=== PATIENT | female | born 1995 | race Caucasian/White ===

== ENCOUNTER 2017-08-28 11:52 | Emergency (ER) | payer OTHER ==
[2017-08-28] MEDS ORDERED: PROPARACAINE 0.5% OPHTH DROPS 15 ML EACHEYE STA (13:53)
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
[2017-08-28 14:29] VITALS: BP 108/70
== END 2017-08-28 14:28 | disposition home or self-care (01) ==
LOC: ED 11:52
DX: S05.01XA Injury of conjunctiva and corneal abrasion without foreign body, right eye, initial encounter (principal); W22.8XXA Striking against or struck by other objects, initial encounter
CPT/HCPCS: 99283; J3490

== ENCOUNTER 2018-09-10 19:47 | Emergency (ER) | payer OTHER ==
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
[2018-09-10 22:55] VITALS: BP 136/86
== END 2018-09-10 22:55 | disposition home or self-care (01) ==
LOC: ED 19:47
DX: Z04.1 Encounter for examination and observation following transport accident (principal); H61.23 Impacted cerumen, bilateral; R03.0 Elevated blood-pressure reading, without diagnosis of hypertension
CPT/HCPCS: 69209; 99283

== ENCOUNTER 2018-09-28 17:32 | Emergency (ER) | payer OTHER ==
--- NOTE | 2018-09-28 17:45 | ED Physician Documentation ---
PD HPI FEMALE - Stated complaint Stated Complaint: FEMALE - Chief complaint Chief Complaint: UTI - History obtained from History obtained from: Patient - History of Present Illness Timing - onset: Today (Urinary frequency and burning starting today without flank pain fevers or chills. 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 : None HEENT: None Psych: None Musculoskeletal: None Derm: None - Past Surgical History Past Surgical History: No - Present Medications Home Medications: Ambulatory Orders Medication Instructions Recorded Confirmed Nitrofurantoin Monohyd/M-Cryst 100 mg PO BID #10 capsule 09/28/18 [Macrobid 100 mg Capsule] Phenazopyridine HCl [Pyridium] 200 mg PO TID PRN #6 tablet 09/28/18 - Allergies Allergies/Adverse Reactions: Allergies Allergy/AdvReac Type Severity Reaction Status Date / Time No Known Drug Allergies Allergy Verified 09/28/18 17:42 - Social History Does the pt smoke?: No Smoking Status: Never smoker Does the pt drink ETOH?: No Does the pt have substance abuse?: Yes - Immunizations Immunizations are current?: Yes - POLST Patient has POLST: No PD ED PE NORMAL - Vitals Vital signs reviewed: Yes - General General: Alert and oriented X 3, No acute distress - Abdomen Abdomen: Soft, Non tender - Back Back: No CVA TTP, No spinal TTP - Neuro Neuro: Alert and oriented X 3, Normal speech Results - Vitals Vitals: Vital Signs - 24 hr 09/28/18 17:40 Temperature 36.4 C L Heart Rate 92 Respiratory 16 Rate Blood Pressure 144/90 H O2 Saturation 100 Oxygen O2 Source Room air - Labs Labs: Laboratory Tests 09/28/18 18:05 Urine Color YELLOW Urine Clarity CLEAR Urine pH 5.5 Ur Specific [place] 1.010 Urine Protein NEGATIVE Urine Glucose (UA) NEGATIVE Urine Ketones NEGATIVE Urine Occult Blood SMALL H Urine Nitrite NEGATIVE Urine Bilirubin NEGATIVE Urine Urobilinogen 0.2 (NORMAL) Ur Leukocyte Esterase SMALL H Urine RBC 0-5 Urine WBC >25 H Ur Squamous Epith Cells FEW Squamous Urine Bacteria None Seen Ur Microscopic Review INDICATED Urine Culture Comments INDICATED Urine HCG, Qual NEGATIVE Departure - Departure Disposition: 01 Home, Self Care Clinical Impression: Cystitis Condition: Good Record reviewed to determine appropriate education?: Yes Instructions: ED UTI Cystitis Female Prescriptions: Nitrofurantoin Monohyd/M-Cryst [Macrobid 100 mg Capsule] 100 mg PO BID #10 capsule Phenazopyridine HCl [Pyridium] 200 mg PO TID PRN #6 tablet PRN Reason: dysuria Comments: We will culture your urine, the results should be done in 48-72 hours. If an antibiotic change is necessary we will call you. Return if worse in the mean time, especially if you develop increasing flank pain, fevers, or cannot keep down the medication. Your blood pressure was elevated today on check into the emergency department. This does not mean that you have hypertension, it is a common phenomenon to come to the emergency department and have elevated blood pressure. I recommend that you see your primary care physician within the week to have it rechecked when you are feeling better.
[2018-09-28 18:09] LABS: BILIRUBIN,URINE NEGATIVE (NEGATIVE); GLUCOSE, URINE (UA) NEGATIVE (NEGATIVE); KETONES,URINE (UA) NEGATIVE (NEGATIVE); LEUKOCYTE ESTERASE, URINE SMALL (NEGATIVE); NITRITE,URINE NEGATIVE (NEGATIVE); OCCULT BLOOD,URINE SMALL (NEGATIVE); PH,URINE 5.5 PH (5.0-7.5); PROTEIN,URINE NEGATIVE (NEGATIVE); UROBILINOGEN,URINE 0.2 (NORMAL) E.U./dL (NORMAL)
[2018-09-28 18:14] LABS: CLARITY,URINE CLEAR (CLEAR); HCG UR QUAL NEGATIVE
[2018-09-28 18:25] LABS: BACTERIA,URINE None Seen /HPF (None Seen); RBC,URINE 0-5 /HPF (0-5); SQUAMOUS EPITHELIAL CELL,UR FEW Squamous (<= Few)
[2018-09-28] MEDS ORDERED: PHENAZOPYRIDINE 100 MG TABLET PO STA (18:32)
[2018-09-28] MEDS ORDERED: NITROFURANTOIN MACRO 100 MG CAPSULE PO STA (18:32)
[2018-09-28 18:47] VITALS: BP 128/91
== END 2018-09-28 18:51 | disposition home or self-care (01) ==
LOC: ED 17:32
DX: N30.90 Cystitis, unspecified without hematuria (principal); R03.0 Elevated blood-pressure reading, without diagnosis of hypertension
CPT/HCPCS: 81001; 81025; 87086; 99283; A9270; 81003

== ENCOUNTER 2022-10-18 19:19 | Emergency (ER) | payer OTHER ==
[2022-10-18 19:57] LABS: BILIRUBIN,URINE NEGATIVE (NEGATIVE); GLUCOSE, URINE (UA) NEGATIVE (NEGATIVE); KETONES,URINE (UA) NEGATIVE (NEGATIVE); LEUKOCYTE ESTERASE, URINE LARGE (NEGATIVE); NITRITE,URINE NEGATIVE (NEGATIVE); OCCULT BLOOD,URINE LARGE (NEGATIVE); PROTEIN,URINE 30 mg/dL (NEGATIVE); UROBILINOGEN,URINE 0.2 (NORMAL) E.U./dL (NORMAL)
[2022-10-18 19:59] LABS: CLARITY,URINE HAZY (CLEAR); HCG UR QUAL NEGATIVE
[2022-10-18 20:08] LABS: RBC,URINE TNTC /HPF (0-5); WBC,URINE >25 /HPF (0-5)
[2022-10-18 20:09] LABS: BACTERIA,URINE Few /HPF (None Seen); SQUAMOUS EPITHELIAL CELL,UR RARE Squamous (<= Few)
[2022-10-18] MEDS: CEFPODOXIME PROXETIL 100 MG TABLET PO STA (21:16)
[2022-10-18] MEDS: PHENAZOPYRIDINE 100 MG TABLET PO STA (21:17)
--- NOTE | 2022-10-18 21:36 | ED Physician Documentation ---
History of Present Illness - Stated complaint Stated Complaint: FEMALE - Chief complaint Chief Complaint: UTI - Additonal information Additional information: 26-year-old female presents emergency department for evaluation of acute onset d ysuria urgency and frequency. Symptoms began last night. Feels similar to UTIs she has had in the past though none now for at least 3 years. She is sexually active with a new partner but reports 100% condom use. No vaginal discharge. No pelvic pain. She has been drinking cranberry juice without relief of symptoms. No fevers vomiting or flank pain Patient is reliable historian Review of Systems Constitutional: reports: Reviewed and negative GI: denies: Abdominal Pain, Nausea, Vomiting : reports: Dysuria, Frequency. 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 Estradiol 1 tab PO DAILY 10/18/22 10/18/22 [Nortrel 1-35 28 Tablet] Phenazopyridine HCl [Pyridium] 200 mg PO TID PRN #6 tablet 10/18/22 - Allergies Allergies/Adverse Reactions: Allergies Allergy/AdvReac Type Severity Reaction Status Date / Time No Known Drug Allergies Allergy Verified 10/18/22 19:43 - Social History Does the pt smoke?: No Smoking Status: Never smoker Does the pt drink ETOH?: No Does the pt have substance abuse?: Yes - Immunizations Immunizations are current?: Yes - POLST Patient has POLST: No PD ED PE NORMAL - General General: Alert and oriented X 3, No acute distress - Cardiac Cardiac: RRR, No murmur - Respiratory Respiratory: No respiratory distress, Clear bilaterally - Abdomen Abdomen: Normal bowel sounds, Soft. No: Non tender (Mild suprapubic tenderness. No flank pain CVA tenderness. 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 Eye Opening: Spontaneous Motor: Obeys Commands Verbal: Oriented GCS Score: 15 Results - Vitals Vitals: Vital Signs - 24 hr 10/18/22 10/18/22 19:30 21:19 Temperature 36.6 C 36.8 C Heart Rate 94 108 H Respiratory 18 16 Rate Blood Pressure 168/116 H 148/107 H O2 Saturation 98 98 Oxygen O2 Source Room air - Labs Labs: Laboratory Tests 10/18/22 19:42 Urine Color YELLOW Urine Clarity HAZY Urine pH 6.0 Ur Specific [place] 1.020 Urine Protein 30 H Urine Glucose (UA) NEGATIVE Urine Ketones NEGATIVE Urine Occult Blood LARGE H Urine Nitrite NEGATIVE Urine Bilirubin NEGATIVE Urine Urobilinogen 0.2 (NORMAL) Ur Leukocyte Esterase LARGE H Urine RBC TNTC H Urine WBC >25 H Ur Squamous Epith Cells RARE Squamous Urine Bacteria Few Ur Microscopic Review INDICATED Urine Culture Comments INDICATED Urine HCG, Qual NEGATIVE PD Medical Decision Making - ED course Complexity details: reviewed results, re-evaluated patient, considered differential, d/w patient ED course: 26-year-old female presents emergency department for evaluation of dysuria urgency and frequency. Symptoms began last night. Urinalysis is consistent with infection. She has no fevers flank pain or vomiting. I have lower suspicion for a sending infection. Patient was administered 1 dose of Vantin here in the ER as well as Pyridium. She will did discharged with oral prescription for both. We discussed the usual emergent return precautions for worsening symptoms Departure - Departure Disposition: 01 Home, Self Care Clinical Impression: Acute cystitis Qualifiers: Hematuria presence: without hematuria Qualified Code(s): N30.00 - Acute cystitis without hematuria Condition: Stable Record reviewed to determine appropriate education?: Yes Instructions: ED UTI Cystitis Female Prescriptions: Phenazopyridine HCl [Pyridium] 200 mg PO TID PRN #6 tablet PRN Reason: dysuria Cefpodoxime Proxetil [Vantin] 100 mg PO Q12H #14 tablet Comments: Elaine you came to the emergency department with urinary symptoms. You do have a urinary tract infection. You were given your initial dose of antibiotics here in the emergency department. A prescription for cefpodoxime also known as Vantin as well as Pyridium have been sent to the [facility] in [place]. With the antibiotics I would expect improved symptoms over the next 48 to 72 hours. If her symptoms or not improving, you develop fevers, have flank pain or vomiting you should return immediately to any emergency department for reevaluation
[2022-10-18 21:44] VITALS: BP 150/103
== END 2022-10-18 21:44 | disposition home or self-care (01) ==
LOC: ED 19:19
DX: N30.00 Acute cystitis without hematuria (principal)
CPT/HCPCS: 81001; 81025; 87086; 99283; A9270; 81003; 87077; 87181